=== PATIENT | female | born 1990 | race Caucasian/White ===

== ENCOUNTER 2022-07-10 14:24 | Emergency (ER) | payer MEDICAID ==
[~2022-07-10] VITALS: Ht 175.3 cm; Wt 77.3 kg
[2022-07-10] MEDS ORDERED: acetaminophen 325mg tablet PO ONE (15:50)
--- NOTE | 2022-07-10 16:05 | NUR ---
Ride name: [facility] [phone] Rehab facility okay with giving her a ride home, per patient
[2022-07-10] MEDS ORDERED: LORA-269 PO (16:56)
[2022-07-10 17:14] VITALS: BP 122/67
== END 2022-07-10 17:17 | disposition home or self-care (01) ==
LOC: ER 14:25
DX: G40.909 Epilepsy, unspecified, not intractable, without status epilepticus (principal); F15.90 Other stimulant use, unspecified, uncomplicated; R51.9 Headache, unspecified; F17.200 Nicotine dependence, unspecified, uncomplicated; Z79.899 Other long term (current) drug therapy
CPT/HCPCS: 99284

== ENCOUNTER 2022-07-18 18:50 | Emergency (ER) | payer MEDICAID ==
[~2022-07-18] VITALS: Ht 175.3 cm; Wt 77.0 kg
[~2022-07-18 18:50] MED LIST: LORA-269 PO
--- NOTE | 2022-07-18 19:32 | NUR ---
Patient awake, glucose noted at 60mg/dL. Patient given PO juice. Tolerated well, will recheck glucose after 15 min.
--- NOTE | 2022-07-18 19:43 | NUR ---
Glucose updated, 80mg/dL at this time.
[2022-07-18] MEDS ORDERED: LORazepam 2 mg/ml vial IV ONE (20:40)
[2022-07-18] MEDS ORDERED: normal saline 1000ml 1,000 ML IV ONE (20:40)
[2022-07-18] MEDS ORDERED: levetiracetam inj 1,000 MG in normal saline 100ml IV soln 90 ML IV ONE (21:03)
[2022-07-18 21:51] LABS: CLARITY,URINE CLEAR (Clear); COLOR,URINE STRAW (Yellow); GLUCOSE, URINE NEGATIVE (Neg); KETONES,URINE NEGATIVE (Neg); LEUKOCYTE ESTERASE ,URINE NEGATIVE (Neg); NITRITES, URINE NEGATIVE (Neg); OCCULT BLOOD,URINE NEGATIVE (Neg); PROTEIN,URINE NEGATIVE (Neg); UROBILINOGEN,URINE 0.2 E.U/dL (0.2-1.0)
[2022-07-18 21:54] LABS: UA COLLECTION TYPE NON-SPECIFIED
[2022-07-18 22:04] LABS: BASOPHILS # (AUTO) 0.1 X10'3 (0-0.2); BASOPHILS % (AUTO) 0.6 % (0-1); EOSINOPHILS # (AUTO) 0.2 X10'3 (0-0.9); EOSINOPHILS % (AUTO) 1.8 % (0-6); HEMATOCRIT 36.2 % (35.0-45.0); HEMOGLOBIN 11.8 g/dl (12.0-16.0); LYMPHOCYTES # (AUTO) 2.1 X10'3 (1.1-4.8); LYMPHOCYTES % (AUTO) 24.2 % (21-51); MEAN CORPUSCULAR HEMOGLOBIN 27.4 PG (27.0-31.0); MEAN CORPUSCULAR HGB CONC 32.5 g/dL (33.0-36.5); MEAN CORPUSCULAR VOLUME 84.2 FL (78-98); MEAN PLATELET VOLUME 9.8 FL (7.4-10.4); MONOCYTES # (AUTO) 0.6 X10'3 (0-0.9); MONOCYTES % (AUTO) 6.4 % (2-12); NEUTROPHILS # (AUTO) 5.9 X10'3 (1.8-7.7); PLATELET COUNT 227 X10'3 (140-440); WHITE BLOOD COUNT 8.9 X10'3 (4.5-11.0)
[2022-07-18 22:10] LABS: URINE AMPHETAMINE SCREEN NEGATIVE (Neg); URINE BARBITUATE SCREEN NEGATIVE (Neg); URINE BENZODIAZEPINES SCREEN NEGATIVE (Neg); URINE CANNABINOID SCREEN NEGATIVE (Neg); URINE COCAINE SCREEN NEGATIVE (Neg); URINE METHADONE SCREEN NEGATIVE (Neg); URINE OPIATE SCREEN NEGATIVE (Neg); URINE PHENCYCLIDINE SCREEN NEGATIVE (Neg)
[2022-07-18 22:15] LABS: ALANINE AMINOTRANSFERASE 98 U/L (12-78); ALKALINE PHOSPHATASE 72 IU/L (46-116); ANION GAP 6 (8-16); ASPARTATE AMINO TRANSFERASE 40 U/L (10-37); BILIRUBIN,TOTAL 0.2 MG/DL (0.1-1.0); BLOOD UREA NITROGEN 16 MG/DL (7-18); BUN/CREATININE RATIO 23.5 (6.6-38.0); CALCIUM 8.4 MG/DL (8.5-10.1); CHLORIDE 110 MMOL/L (99-107); CREATINE KINASE 46 U/L (26-192); CREATININE 0.68 MG/DL (0.40-0.90); GLUCOSE 105 MG/DL (70-104); POTASSIUM 3.8 MMOL/L (3.5-5.1); SODIUM 142 MMOL/L (135-145); TOTAL CARBON DIOXIDE 26.1 MMOL/L (24-32); eGFR > 90 ML/MIN
[2022-07-18 22:36] VITALS: BP 100/64
== END 2022-07-18 22:48 | disposition home or self-care (01) ==
LOC: ER 18:50
DX: G40.909 Epilepsy, unspecified, not intractable, without status epilepticus (principal); F17.200 Nicotine dependence, unspecified, uncomplicated; F15.90 Other stimulant use, unspecified, uncomplicated; Z86.69 Personal history of other diseases of the nervous system and sense organs; Z79.899 Other long term (current) drug therapy
CPT/HCPCS: 36415; 80053; 80305; 81003; 82550; 82948; 85025; 96361; 96365; 96375; 99284; J1953; J2060; J3490; J7030

== ENCOUNTER 2022-07-23 11:00 | Emergency (ER) | payer MEDICAID ==
[~2022-07-23] VITALS: Ht 175.3 cm; Wt 81.8 kg
--- NOTE | 2022-07-23 12:31 | NUR ---
Patient sleeping soundly, snoring. No signs of distress. Seizure pads in place.
[2022-07-23 12:49] VITALS: BP 94/63
[2022-07-23 13:30] LABS: CLARITY,URINE CLEAR (Clear); COLOR,URINE YELLOW (Yellow); GLUCOSE, URINE NEGATIVE (Neg); KETONES,URINE NEGATIVE (Neg); OCCULT BLOOD,URINE NEGATIVE (Neg); PROTEIN,URINE NEGATIVE (Neg)
[2022-07-23 13:31] LABS: LEUKOCYTE ESTERASE ,URINE NEGATIVE (Neg); NITRITES, URINE NEGATIVE (Neg); UROBILINOGEN,URINE 0.2 E.U/dL (0.2-1.0)
[2022-07-23 13:32] LABS: URINE HCG NEGATIVE (NEG)
[2022-07-23 13:54] LABS: UA COLLECTION TYPE CLN CATCH MIDSTREAM
[2022-07-23] MEDS ORDERED: levetiracetam 250mg tablet PO ONE (13:55)
== END 2022-07-23 14:42 | disposition home or self-care (01) ==
LOC: ER 11:00
DX: G40.909 Epilepsy, unspecified, not intractable, without status epilepticus (principal); F15.20 Other stimulant dependence, uncomplicated
CPT/HCPCS: 81003; 81025; 82948; 99284

== ENCOUNTER 2024-11-17 10:25 | Emergency (ER) | payer MEDICAID ==
[~2024-11-17] VITALS: Ht 172.7 cm; Wt 97.7 kg
--- NOTE | 2024-11-17 10:36 | Physician Documentation ---
History of Present Illness ~ Stated Complaint: ETOH Time Seen by MD: 10:32 OK to notify your PCP?: Yes Primary Medical Doctor: none HPI 34-year-old female presenting for alcohol intoxication. She was intoxicated at the motel as always having episodes of shaking Medication Reconciliation Allergies: Coded Allergies: No Known Allergies (Unverified , 11/17/24) Scheduled PRN Lorazepam (Ativan), 1 TAB PO Q8H PRN for ANXIETY Past Medical History Past Medical History: Seizures, *GI/HEPATOBILIARY* Past Surgical History: noncontributory Drug Use: methamphetamine Lives In: Other Review of Systems Unable to obtain complete ROS: altered mental status Physical Exam Physical Exam Belligerent yelling not redirectable crying asking for her dog She is unable to participate in any neurologic testing Head atraumatic Chest abdomen and pelvis extremities atraumatic Respiratory no distress breathing comfortably Intermittent episodes of pseudoseizures where she becomes unresponsive and stops breathing but arouses to sternal rub Progress Progress Note Reassess patient she is still sleeping comfortably. We will plan for discharge once he is awake Results/Orders Results/Orders Orders - LUZ SIMONS MD * Restraint Order/Renewal * (11/17/24 11:00) Completed Orders - LUZ SIMONS MD Olanzapine Im (Zyprexa I.M. Im On (11/17/24 11:00) Medications Received in ER Medications (Trade) Dose Ordered Sig/Javier Route PRN Reason Start Time Stop Time Status Last Admin Dose Admin (ZyPREXA I.M. IM ONLY) 10 mg ONCE ONCE IM 11/17/24 11:00 11/17/24 12:03 DC 11/17/24 13:05 10 MG Vital Signs 11/17/24 11/17/24 11/17/24 11/17/24 10:33 10:46 11:00 11:13 Temp 99.1 Pulse 139 140 104 Resp 26 19 19 B/P (MAP) 127/82 127/82 (97) 109/65 (80) Pulse Ox 99 97 97 O2 Flow Rate 0 0 0 11/17/24 11/17/24 11/17/24 11/17/24 12:14 13:45 14:40 15:29 Temp 99.1 Pulse 93 94 92 96 Resp 18 17 15 16 B/P (MAP) 112/66 (81) 123/76 (92) 134/80 (98) 112/80 (91) Pulse Ox 93 100 99 98 O2 Flow Rate 0 0 0 0 11/17/24 16:41 Pulse 87 Resp 16 B/P (MAP) 120/71 (87) Pulse Ox 100 O2 Flow Rate 0 Medical Decision Making Differential Dx:Considerations: Include: Alcohol abuse, Anxiety, Bipolar disorder Departure Disposition: HOME / SELF CARE / HOMELESS Impression: Primary Impression: Alcoholic intoxication Qualified Codes: F10.920 - Alcohol use, unspecified with intoxication, uncomplicated Referrals: NO PRIMARY CARE PROVIDER (PCP) Signature Scribe Signature: No scribe Attestation: No scribe LUZ SIMONS MD November 17, 2024 10:36
[2024-11-17] MEDS: OLANZapine **IM** 10 mg inj. IM ONE (13:05)
[2024-11-17 17:41] VITALS: BP 130/73; PULSE 96; RESP 16; O2SAT 100
[2024-11-17 19:10] VITALS: TEMP 99.1
== END 2024-11-17 19:11 | disposition home or self-care (01) ==
LOC: ER 10:26
DX: F10.129 Alcohol abuse with intoxication, unspecified (principal); F15.90 Other stimulant use, unspecified, uncomplicated; Y90.9 Presence of alcohol in blood, level not specified
CPT/HCPCS: 96372; 99285; J3490

== ENCOUNTER 2024-12-11 05:35 | Emergency (ER) | payer MEDICAID | END 2024-12-11 05:43 | disposition left against medical advice (07) | LOC: ER 05:36 | DX: Z00.8 Encounter for other general examination (principal); Z53.21 Procedure and treatment not carried out due to patient leaving prior to being seen by health care provider ==